=== PATIENT | female | born 1995 | race Caucasian/White ===

== ENCOUNTER 2017-04-27 17:19 | Emergency (ER) | payer BC ==
[~2017-04-27] VITALS: Ht 165.1 cm; Wt 77.3 kg
[2017-04-27] MEDS ORDERED: VIVLODEX5 MG PO (17:28)
[2017-04-27 19:13] LABS: COLLECTION METHOD CLEAN CATCH
[2017-04-27 19:16] VITALS: TEMP 98.6
[2017-04-27 19:16] LABS: BASO % 0.2 % (0.0-2.0); GRAN % 85.7 % (42.2-75.2); HEMATOCRIT 40.3 % (37.0-47.0); HEMOGLOBIN 14.1 g/dl (12.5-16.0); LYMPH # 0.7 (1.2-3.4); LYMPH % 4.2 % (20.0-51.0); MEAN CELL VOLUME 90 fl (80.0-100.0); MEAN CORPUSCULAR HEMOGLOBIN 31 pg (27.0-31.0); MEAN CORPUSCULAR HGB CONC 35 g/dl (33.0-37.0); MEAN PLATELET VOLUME 9.5 fl (7.4-10.4); MONO # 1.6 (0.1-0.6); MONO % 9.4 % (1.7-9.3); PLATELET COUNT 229 K/mm3 (130-400); RED BLOOD COUNT 4.49 M/mm3 (4.10-5.30); REDCELL DISTRIBUTION WIDTH-CV 11.9 % (11.5-14.5)
[2017-04-27] MEDS ORDERED: MELATONIN1 MG PO (19:18)
[2017-04-27 19:22] LABS: MUCOUS Present /lpf; PH 5 (5-8); SQUAMOUS EPITHELIAL 0-2 /hpf; URINE APPEARANCE Cloudy; URINE BACTERIA Rare /hpf; URINE BILIRUBIN Negative (NEGATIVE); URINE BLOOD 1+ (NEGATIVE); URINE COLOR Yellow; URINE GLUCOSE Negative (NEGATIVE); URINE KETONE 1+ (NEGATIVE); URINE LEUKOCYTE ESTERASE 3+ (NEGATIVE); URINE NITRATE Positive (NEGATIVE); URINE PROTEIN(semi-quant) 2+ (NEGATIVE); URINE RBC 0-2 /hpf; URINE UROBILINOGEN Negative (NEGATIVE)
[2017-04-27 19:30] LABS: ALBUMIN 4.5 gm/dL (3.5-5.0); BILIRUBIN,TOTAL 1.3 mg/dL (0.0-1.0); C-REACTIVE PROTEIN 7.1 mg/dL (0.0-0.9); CALCIUM 9.2 mg/dL (8.4-10.2); CREATININE, serum 0.83 mg/dL (0.52-1.25); POTASSIUM 3.9 mmol/L (3.4-5.0); TOTAL PROTEIN 7.8 gm/dL (6.4-8.2)
[2017-04-27] MEDS ORDERED: ZOFRAN 4MG T4 MG/TAB PO (20:07)
[2017-04-27] MEDS ORDERED: OMNICEF 300MG300 MG PO (20:07)
[2017-04-27] MEDS ORDERED: NORCO 325 MG-51 TAB PO (20:07)
[2017-04-27 21:00] VITALS: BP 106/69; PULSE 72
== END 2017-04-27 21:55 | disposition home or self-care (01) ==
LOC: COL.ER 17:19
PROVIDERS: Emergency Medicine
DX: N39.0 Urinary tract infection, site not specified (principal); N12 Tubulo-interstitial nephritis, not specified as acute or chronic
CPT/HCPCS: J0696; J1885; J2405; J7030